=== PATIENT | female | born 1975 | race Two or more races ===

== ENCOUNTER 2019-07-04 10:09 | Day surgery (SDC) | payer MEDICAID ==
[2019-06-27 16:10] LABS: EOSINOPHILS # (AUTO) 0.1 X10'3 (0-0.9); EOSINOPHILS % (AUTO) 2.9 % (0-6); LYMPHOCYTES # (AUTO) 1.6 X10'3 (1.1-4.8); LYMPHOCYTES % (AUTO) 37.3 % (21-51); MEAN CORPUSCULAR HGB CONC 33.1 g/dL (33.0-36.5); MEAN CORPUSCULAR VOLUME 90.9 FL (78-98); MEAN PLATELET VOLUME 8.8 FL (7.4-10.4); MONOCYTES # (AUTO) 0.4 X10'3 (0-0.9); MONOCYTES % (AUTO) 9.7 % (2-12); NEUTROPHILS # (AUTO) 2.1 X10'3 (1.8-7.7); NEUTROPHILS % (AUTO) 49.1 % (42-75); PRE OP HEMATOCRIT 39.1 % (35.0-45.0); PRE OP HEMOGLOBIN 12.9 g/dL (12.0-16.0); PRE OP PLATELET COUNT 154 X10'3 (140-440); RED CELL DISTRIBUTION WIDTH 12.5 % (11.5-14.5)
[2019-06-27 16:17] LABS: CLARITY,URINE SLIGHTLY CLOUDY (Clear); COLOR,URINE YELLOW (Yellow); GLUCOSE, URINE NEGATIVE (Neg); KETONES,URINE NEGATIVE (Neg); LEUKOCYTE ESTERASE ,URINE NEGATIVE (Neg); NITRITES, URINE NEGATIVE (Neg); OCCULT BLOOD,URINE TRACE-INTACT (Neg); PROTEIN,URINE NEGATIVE (Neg); UROBILINOGEN,URINE 0.2 E.U/dL (0.2-1.0)
[2019-06-27 16:19] LABS: UA COLLECTION TYPE CLN CATCH MIDSTREAM
[2019-06-27 16:27] LABS: BACTERIA,URINE NONE SEEN /HPF (Neg); RBC,URINE 0-2 /HPF (0-2); SQUAMOUS EPITHELIAL CELL,UR FEW /LPF (FEW); WBC,URINE NONE SEEN /HPF (0-4)
[2019-06-27 16:30] LABS: HCG SERUM QL NEGATIVE
[2019-06-27 16:34] LABS: ALBUMIN 3.4 G/DL (3.4-5.0); ALBUMIN/GLOBULIN RATIO 0.9 (1.1-1.5); ALKALINE PHOSPHATASE 87 IU/L (46-116); BLOOD UREA NITROGEN 12 MG/DL (7-18); BUN/CREATININE RATIO 16.2 (6.6-38.0); CALCIUM 8.6 MG/DL (8.5-10.1); CHLORIDE 108 MMOL/L (99-107); CREATININE 0.74 MG/DL (0.40-0.90); PRE OP ALT 26 U/L (30-65); PRE OP ANION GAP 3 (8-16); PRE OP AST 21 U/L (10-37); PRE OP BILIRUB, TOTAL 0.2 MG/DL (0.0-1.0); PRE OP GLUCOSE 103 MG/DL (70-104); PRE OP POTASSIUM 3.5 MMOL/L (3.4-5.1); PRE OP SODIUM 143 MMOL/L (135-145); TOTAL CARBON DIOXIDE 31.7 MMOL/L (24-32); TOTAL PROTEIN 7.1 G/DL (6.4-8.2); eGFR 85 ML/MIN
[2019-07-04] VITALS (11 sets, daily range): BP systolic 106–135; BP diastolic 69–86
[~2019-07-04] VITALS: Ht 149.9 cm; Wt 58.1 kg
[~2019-07-04 10:09] MED LIST: LEVO25TA7 PO; ceFOXitin sod/dextrose 2g/50ml 50 ML IV ONE; famotidine 20mg tablet PO ONE; ringers solution, lacted 1,000 ML IV SCH
[2019-07-04] MEDS ORDERED: famotidine 20mg tablet PO ONE (10:45)
[2019-07-04] MEDS ORDERED: ringers solution, lacted 1,000 ML IV SCH (11:14)
[2019-07-04] MEDS ORDERED: proCHLORperazine 10 MG/2 ml inj IV PRN (11:15)
[2019-07-04] MEDS ORDERED: morphine 4 MG/ML inj SYRINge IV PRN (11:15)
[2019-07-04] MEDS ORDERED: meperidine/PF 25mg/ml syringe IV PRN ×3 (11:15)
[2019-07-04] MEDS ORDERED: ondansetron/PF 4mg/2ml inj IV PRN (11:15)
[2019-07-04] MEDS ORDERED: morphine 2 MG/ML inj. syringe IV PRN (11:15)
[2019-07-04] MEDS ORDERED: vasoPRESSIN 20 units/ml inj. ONE (13:16)
[2019-07-04] MEDS ORDERED: neostigmine methylsulfate 1 MG/ML 10ml vial ONE (13:35)
[2019-07-04] MEDS ORDERED: sevoflurane 250ml liquid IH ONE (13:35)
[2019-07-04] MEDS ORDERED: dexamethasone sod phosphate 10mg/ml inj ONE (13:35)
[2019-07-04] MEDS ORDERED: glycopyrrolate 0.2mg/ml inj ONE (13:35)
[2019-07-04] MEDS ORDERED: fentaNYL/PF 50MCG/1 ML 2ML syringe ONE (13:43)
[2019-07-04] MEDS ORDERED: midazolam 2 mg/2 ml injection ONE (13:43)
[2019-07-04] MEDS ORDERED: rocuronium 10mg/ml inj IV ONE (13:53)
[2019-07-04] MEDS ORDERED: ondansetron/PF 4mg/2ml inj ONE (13:53)
[2019-07-04] MEDS ORDERED: ketorolac trometh. 30mg/ml inj. ONE (14:41)
[2019-07-04] MEDS ORDERED: propofol inj 20 ML IV ONE (14:41)
[2019-07-04] MEDS ORDERED: LIDOcaine 1%/PF 5ML 10 MG/ML VIAL ONE (14:41)
--- NOTE | 2019-07-04 14:57 | NUR ---
Received from OR via BED, accompanied by Anesthesiologist DR COLE and report given by Anesthesiolgist. PATIENT A&OX4, DENIES PAIN, V/S WNL, NEUROVASCULAR CHECKS INTACT,20 G PIV LUE, SCD ON, F/C IN PLACE, CLEAR YELLOW DRAINAGE NOTED
--- NOTE | 2019-07-04 15:02 | NUR ---
F/C DC'D ORDERED, PATIENT TOLERATED WELL
[2019-07-04] MEDS ORDERED: acetaminophen 1,000mg/100ml IV 100 ML IV ONE (15:25)
--- NOTE | 2019-07-04 16:37 | NUR ---
I HAVE REVIEWED D/C INSTRUCTIONS WITH PATIENT AND FAMILY AND THEY HAVE VERBALIZED UNDERSTANDING. PATIENT D/C HOME WITH ALL BELONGINGS AND FAMILY GAVE TRANSPORT HOME.
== END 2019-07-04 16:27 | disposition home or self-care (01) ==
LOC: UNDOADMIN 10:09 → PAS IN 10:09 → PAS 10:09 → SUR 3N 10:09 → EDSTATUS 12:15 → PAS 16:27 → UNDODISIN 16:27
PROVIDERS: ATTEND Obstetrics & Gynecology Obstetrics
DX: D27.1 Benign neoplasm of left ovary (principal); N99.4 Postprocedural pelvic peritoneal adhesions; Z98.890 Other specified postprocedural states; E03.9 Hypothyroidism, unspecified; Z79.899 Other long term (current) drug therapy
CPT/HCPCS: 36415; 58720; 71046; 80053; 81001; 82948; 84443; 84703; 85025; 86885; 86900; 86901; 87081; 87635; 93005; J0131; J0694; J1100; J1885; J2175; J2250; J2405; J2704; J2710; J3010; J7120; A4314; A4618; A6258; A6449; A7000; J3490